=== PATIENT | male | born 1965 | race Caucasian/White ===

== ENCOUNTER 2018-09-02 07:01 | Day surgery (SDC) | payer OTHER ==
[2018-08-29 14:44] LABS: ALBUMIN 3.8 g/dL (3.4-5.0); ALKALINE PHOSPHATASE 103 U/L (46-116); ALT/SGPT 42 U/L (16-63); AST/SGOT 25 U/L (15-37); BILIRUBIN TOTAL 0.5 mg/dL (0.20-1.00); CALCIUM 9.5 mg/dL (8.5-10.1); CARBON DIOXIDE 30.3 mmol/L (21-32); CHLORIDE SERUM 103 mmol/L (98-107); GFR1 > 60 mL/min; GLUCOSE SERUM 103 mg/dL (74-106); POTASSIUM SERUM 4.3 mmol/L (3.5-5.1); SODIUM SERUM 140 mmol/L (136-145)
[2018-08-29 14:48] LABS: BASOPHIL % 0.4 % (0-2); PLATELET COUNT 371 x10^3mcL (130-400); RED CELL DISTRIBUTION WIDTH 12.7 % (11.5-14.5)
[2018-08-29 15:34] LABS: UA SPECIFIC GRAVITY 1.025 (1.005-1.035); microscopic required? YES; urine erythrocyte NEGATIVE (NEGATIVE)
--- NOTE | 2018-08-29 16:31 | NUR ---
PT PRETESTING STATUS AND RESULTS REVIEWED BY ANESTHESIOLOGIST DR SULLIVAN. NO NEW ORDERS AT THIS TIME.
[~2018-09-02] VITALS: Ht 170.2 cm; Wt 104.3 kg
[2018-09-02 07:27] VITALS: BP 119/79
[2018-09-02 15:05] VITALS: BP 118/59
== END 2018-09-02 14:30 | disposition home or self-care (01) ==
LOC: DS 07:01 → OR 09:30 → DS 09:30
PROVIDERS: Neuromusculoskeletal Medicine, Sports Medicine
DX: S46.811A Strain of other muscles, fascia and tendons at shoulder and upper arm level, right arm, initial encounter (principal); E66.8 Other obesity; F17.210 Nicotine dependence, cigarettes, uncomplicated; Z98.890 Other specified postprocedural states; Z79.899 Other long term (current) drug therapy; Z85.841 Personal history of malignant neoplasm of brain; Z92.3 Personal history of irradiation; Z92.21 Personal history of antineoplastic chemotherapy; Z68.36 Body mass index [BMI] 36.0-36.9, adult; X58.XXXA Exposure to other specified factors, initial encounter; Y93.89 Activity, other specified; Y92.89 Other specified places as the place of occurrence of the external cause; Y99.8 Other external cause status
CPT/HCPCS: J0690; J1170; J2175; J2250; J2405; J2704; J3010; J3490; J7120; Q0092